=== PATIENT | male | born 1985 | race Caucasian/White ===

== ENCOUNTER 2020-12-21 21:39 | Emergency (ER) | payer OTHER ==
[~2020-12-21] VITALS: Ht 175.3 cm; Wt 77.1 kg
[2020-12-21 21:39] VITALS: BP_SYST 160
[2020-12-22 00:35] VITALS: BP_SYST 160
== END 2020-12-22 00:35 | disposition home or self-care (01) ==
LOC: SED 21:39
DX: S61.215A Laceration without foreign body of left ring finger without damage to nail, initial encounter (principal); W45.8XXA Other foreign body or object entering through skin, initial encounter; Y93.89 Activity, other specified; Y92.89 Other specified places as the place of occurrence of the external cause; Y99.8 Other external cause status
CPT/HCPCS: 99282